=== PATIENT | female | born 1985 | race Two or more races ===

== ENCOUNTER 2024-02-16 01:54 | Emergency (ER) | payer MEDICAID, SELFPAY ==
[2024-02-16 01:55] VITALS: BMI 25.6
[2024-02-16 02:01] VITALS: BP 179/109; PULSE 82; RESP 18; TEMP 36.8; O2SAT 98
--- NOTE | 2024-02-16 02:05 | PD.EDRME ---
Rapid Medical Screening Exam RME Arrival date/time: 02/16/24 01:54 38-year-old female presents emergency department complaining of bilateral flank pain that started yesterday. Chief Complaint: Back Pain/Injury Time Seen by Provider: 02/16/24 02:02 Vital signs: Vital Signs Temperature 98.2 F 02/16/24 02:01 Pulse Rate 82 02/16/24 02:01 Respiratory Rate 18 02/16/24 02:01 Blood Pressure 179/109 H 02/16/24 02:01 Pulse Oximetry (%) 98 02/16/24 02:01 Oxygen Delivery Method Room Air 02/16/24 02:01 Vital signs reviewed by provider: Yes
--- NOTE | 2024-02-16 02:24 | PC.NURSE ---
SEEN LEAVING ER, PT GOT INTO A CAR.
--- NOTE | 2024-02-16 02:24 | PC.NURSE ---
NO ANSWER AT ER LOBBY OR OUTSIDE ER FOR BLOOD DRAW.
== END 2024-02-16 02:25 | disposition left against medical advice (07) ==
LOC: SERX 02:45
PROVIDERS: Emergency Provider Emergency Medicine
DX: R10.9 Unspecified abdominal pain (principal); Z53.29 Procedure and treatment not carried out because of patient's decision for other reasons
CPT/HCPCS: 80053; 80307; 81001; 83690; 84703; 85025; 99281

== ENCOUNTER 2024-08-01 16:09 | Emergency (ER) | payer MEDICAID, SELFPAY ==
[2024-08-01 16:11] VITALS: BP 158/92; PULSE 91; RESP 18; TEMP 36.6; O2SAT 95
--- NOTE | 2024-08-01 16:15 | PD.EDNV ---
Nausea/Vomit./Diarrhea-RME/HPI General Chief complaint: Nausea/Vomiting/Diarrhea Stated complaint: NAUSEA Time Seen by Provider: 08/01/24 16:18 Arrival date/time: 08/01/24 16:09 Limitations: no limitations RME / HPI RME / HPI Narrative: DR. COLLINS MAIN ED EVALUATION: 38 year old female presents to the Emergency Department [facility] with complaints of nausea and vomiting. No fevers or chills. Per EMS, patient was working in the [employer], [employer], and she has not been drinking water for 2 days. No other symptoms reported. Related Data Previous Rx's ?Medication ?Instructions ?Recorded ibuprofen 600 mg tablet 600 mg PO Q6H #30 tabs 11/17/23 Allergies Allergy/AdvReac Type Severity Reaction Status Date / Time No Known Allergies Allergy Verified 08/01/24 16:24 Review of Systems Review of Systems Systems Reviewed: All systems reviewed, normal except as documented Narrative Review of Systems: GEN: No fever, no chills, no weight loss EYES: No discharge, no visual changes, no pain HEENT: No ear pain, no congestion, no sore throat PULM: No shortness of breath, no cough, no congestion CV: No chest pain, no dyspnea on exertion, no palpitations GI: + nausea, + vomiting, no diarrhea, no pain, no constipation : No frequency, no urgency and no dysuria MUSC/SKEL: No joint pain, no back pain SKIN: No rash PSYCH: No hallucinations, no depression HEME/LYMPH: No easy bleeding or bruising tendencies NEURO: No weakness, no headache Past Medical History Social History SMOKING STATUS: Never smoker SUBSTANCE USE: does not use (denies) ALCOHOL: Never ED Exam General Limitations: Present no limitations General appearance: Present alert and in no apparent distress Head Head exam: Present atraumatic, normocephalic and normal inspection Eye Eye exam: Present normal appearance, PERRL and EOMI ENT ENT exam: Present normal exam, normal oropharynx and mucous membranes moist Neck Neck exam: Present normal inspection, full ROM and trachea midline Chest Chest inspection: Present normal inspection and symmetric chest wall rise Respiratory Respiratory exam: Present normal lung sounds bilaterally Cardiovascular Cardiovascular exam: Present regular rate, normal rhythm and normal heart sounds Abdominal Exam Abdominal exam: Present soft and normal bowel sounds Extremities Exam Extremities exam: Present normal inspection and full ROM Back Exam Back exam: Present normal inspection and full ROM Neurological Exam Neurological exam: Present alert, oriented X3 and CN II-XII intact Psychiatric Psychiatric exam: Present normal affect and normal mood Skin Skin exam: Present warm, dry, intact and normal color Course Quality Measures none Orders Category Date Time Status CT Screening NOW Care 08/01/24 16:22 Active Insert IV STAT Care 08/01/24 16:[address] abdomen pelvis w con Stat Exams 08/01/24 16:22 Ordered Amylase Stat Lab 08/01/24 16:32 Completed CBC Stat Lab 08/01/24 16:32 Completed Comprehensive Metabolic Panel Stat Lab 08/01/24 16:32 Completed HCG Qualitative,Urine Stat Lab 08/01/24 16:20 Ordered HCG Titer if Positive Stat Lab 08/01/24 16:32 Completed Lipase Stat Lab 08/01/24 16:32 Completed Magnesium Stat Lab 08/01/24 16:32 Completed Urinalysis Stat Lab 08/01/24 16:20 Ordered DiphenhydrAMINE INJ [Benadryl Inj] Med 08/01/24 16:23 Discontinued 25 mg IV X1 ONE Famotidine Inj [Pepcid Inj] Med 08/01/24 16:19 Discontinued 20 mg IVP X1 ONE Metoclopramide Inj [Reglan Inj] Med 08/01/24 16:19 Discontinued 10 mg IVP X1 ONE Morphine Inj Med 08/01/24 16:19 Active 5 mg IVP Q30M PRN Ondansetron Inj [Zofran Inj] Med 08/01/24 16:19 Active 4 mg IV Q1H PRN Sodium Chloride 0.9% 1000 ml [Ns] 1,000 ml Med 08/01/24 16:19 Active IV 100 mls/hr Sodium Chloride 0.9% 1000 ml [Ns] 1,000 ml Med 08/01/24 16:19 Discontinued IV 999 mls/hr Vital Signs Vital signs: Vital Signs Temperature 97.9 F 08/01/24 16:11 Pulse Rate 91 08/01/24 16:11 Respiratory Rate 18 08/01/24 16:11 Blood Pressure 158/92 H 08/01/24 16:11 Pulse Oximetry (%) 95 08/01/24 16:11 Oxygen Delivery Method Room Air 08/01/24 16:11 Nausea/Vomiting/Diarrhea MDM Narrative MDM Narrative:: I, Yaz Pelayo, jonnie scribing for and in the presence of Dr. Collins. Patient here for nausea and vomiting. Differential diagnosis: Likely gastroenteritis, hyperemesis syndrome, drug-induced nausea, dehydration, or heat stroke. Plan to order abdomen/pelvis CT, labs, and reevaluate. Pending abdomen/pelvis CT. Patient's case signed out to Dr. Estrada. Patient data External records reviewed:: EMS form Clinical information provided by:: patient and EMS Social determinants that could affect healthcare access:: none Patient has the following chronic illnesses:: Denies any PMHx, surgeries, daily medications, or known allergies. How is presenting disease/condition affected by chronic disease/condition?: no chronic disease Evaluation data The following diagnostics were reviewed and interpreted by me:: lab results and radiology exam(s) Lab and/or radiology exams considered but not ordered:: none Interpretation Summary: Pending. Medications / Prescriptions Medications / Prescriptions considered but not ordered:: none Medication administrations:: Medication Administration History Sodium Chloride (Ns) 1,000 mls @ 100 mls/hr IV .Q10H ONE Stop: 08/02/24 02:18 Morphine Sulfate (Morphine Sulf Inj 10 Mg/Ml Vial) 5 mg IVP Q30M PRN PRN Reason: ABDOMINAL CRAMPING Stop: 08/01/24 18:20 Ondansetron HCl (Ondansetron Inj 2 Mg/Ml Inj 2 Ml) 4 mg IV Q1H PRN PRN Reason: PERSISTENT NAUSEA OR VOMITING Discontinued Medications Diphenhydramine HCl (Diphenhydramine Inj 50 Mg/Ml Vial) 25 mg IV X1 ONE Stop: 08/01/24 16:24 Famotidine (Famotidine Inj 10 Mg/Ml Vial 2 Ml) 20 mg IVP X1 ONE Stop: 08/01/24 16:20 Sodium Chloride (Ns) 1,000 mls @ 999 mls/hr IV .Q1H1M ONE Stop: 08/01/24 17:19 Metoclopramide HCl (Metoclopramide Inj 5 Mg/Ml Vial 2 Ml) 10 mg IVP X1 ONE Stop: 08/01/24 16:20 see above if any Consultations Consultation(s) initiated? (list below): No Diagnosis Nausea Differential Diagnosis: gastroenteritis, drug-induced nausea and vomiting, dehydration and other (heat stroke, hyperemesis syndrome) Most likely diagnosis given after review of the tests above:: No official diagnoses at this time, still pending diagnostic tests. Patient signout to the shiftman provider. Admission Indicated Admission indicated?: not indicated Explain why admission is indicated or not indicated:: No final disposition plan at this time, still pending diagnostic tests. Patient signout to the shiftman provider. Admission Request Was there a request for admission?: No Disposition Plan Disposition Plan: other (specify) (Pending abdomen/pelvis CT. Patient's case signed out to Dr. Estrada. ) Discharge Plan Prescriptions/Referrals Prescriptions/Med Rec: No Action ibuprofen 600 mg tablet 600 mg PO Q6H Qty: 30 0RF Referrals: No Primary/Family,Physician [Primary Care Provider] - In 1 week Patient/Caregiver Discharge Instructions Print Language: Palauan
[2024-08-01 16:21] VITALS: PULSE 92; O2SAT 97
[2024-08-01 16:47] LABS: Basophils # (Auto) 0.1 Thou/mm3 (0.0-0.2); Basophils % (Auto) 1 % (0-2.5); Eosinophils # (Auto) 0.2 Thou/mm3 (0.0-0.5); Eosinophils % (Auto) 2 % (0-10); Hematocrit 39.1 % (36.0-46.0); Hemoglobin 13.3 g/dL (12.0-16.0); Immature Granulocytes % (Auto) 1 % (0-0); Immature Granulocytes Auto 0.06 Thou/mm3 (0.00-0.00); Lymphocytes # (Auto) 1.5 Thou/mm3 (1.0-4.8); Lymphocytes % (Auto) 13 % (10-50); Mean Corpuscular Hemoglobin 27.8 pg (25.0-35.0); Mean Corpuscular Volume 82 fL (80-100); Monocytes # (Auto) 0.4 Thou/mm3 (0.0-0.8); Monocytes % (Auto) 4 % (0-12); Neutrophils # (Auto) 9.2 Thou/mm3 (1.8-7.7); Neutrophils % (Auto) 80 % (37-80); Nucleated Red Blood Cell % 0 /100 WBC (0); Platelet Count 406 Thou/mm3 (140-440); RDW Standard Deviation 38.8 fL (36.4-46.3); Red Blood Count 4.79 Miln/mm3 (4.00-5.20); White Blood Count 11.5 Thou/mm3 (3.6-11.0)
[2024-08-01 16:58] LABS: HCG Titer if Positive Negative
[2024-08-01 17:06] LABS: Alanine Aminotransferase 18 U/L (10-49); Albumin, Serum 4.4 gm/dL (3.5-5.0); Albumin/Globulin Ratio 1.6 (1.2-2.2); Alkaline Phosphatase 82 U/L (46-116); Amylase 98 U/L (30-118); Anion Gap 10 (7-16); Aspartate Amino Transferase 19 U/L (0-34); BUN/Creatinine Ratio 16 Ratio (12-20); Bilirubin,Total 0.5 mg/dL (0.3-1.2); Blood Urea Nitrogen 14 mg/dL (9-23); Calcium 8.9 mg/dL (8.3-10.6); Calcium (Corrected) 8.9 mg/dL (8.5-10.1); Carbon Dioxide 23.9 mMol/L (20.0-31.0); Chloride 106 mMol/L (98-107); Creatinine (Component) 0.9 mg/dL (0.6-1.3); Globulin 2.8 gm/dL (2.3-3.5); Glucose 131 mg/dL (74-106); Lipase 35 U/L (12-53); Osmolality,Calculated 281 (275-295); Potassium 4.1 mMol/L (3.4-5.1); Sodium 140 mMol/L (136-145); Total Protein 7.2 gm/dL (5.7-8.2); eGFR > 60 See Note
--- NOTE | 2024-08-01 18:40 | PD.EDADDENDU ---
Emergency Room Addendum Addendum Narrative: 1800: Care assumed from Dr. Collins (emergency physician). Past medical, surgical, social and family history reviewed. Vitals and home medications reviewed. Results and treatment plan discussed. I will assume the care of the patient at this time and will follow the patient, pending Abdomen/Pelvis CT. 1939: All labs are unremarkable, per my interpretation. 1949: EKG shows normal sinus rhythm at 74, normal axis, no ectopy, no signs of acute ischemia, per my interpretation. 2056: Patient discharge home. RADIOLOGY Chest X-Ray: Patient: VERONICA BAUMAN. Record#: [id number] Birthdate: 1985 Age/Sex: 38 / F Location: [facility] Attending Dr: Ordering Physician: Davide Estrada MD Date of Service: 08/01/24 Procedure(s): XR chest 1V portable Accession Number(s): [id number] cc: Je Raines MD; NO PRIMARY/FAMILY,PHYSICIAN; Davide Estrada MD~ Examination: AP chest single view TECHNIQUE: AP portable upright chest single view Exam date and time: August 01, 2024, 2044 hours INDICATIONS: Nausea vomiting today. FINDINGS: Normal heart size. No aspiration pneumonia. No pulmonary edema. The osseous structures are intact. IMPRESSION: No active disease Dictated By: Je Raines MD Signed By: <Electronically signed by Je Raines MD in [place]>08/01/242134 ED Exam Narrative Physical exam: GENERAL APPEARANCE: alert and oriented x 4, well-developed, well-nourished, no acute distress VITALS: All vitals were reviewed and the pulse ox is 98% on room air, which is normal according to my interpretation. LUNGS: CTABL; no wheezes, no rales, no rhonchi HEART: Regular rate, regular rhythm; normal S1, S2; no murmurs ABDOMEN: non distended; normal BS; soft, no tenderness, no guarding, no rebound; no masses, no organomegaly, no hernia BACK: no CVA tenderness General Limitations: Present no limitations General appearance: Present alert and in no apparent distress
[2024-08-01 19:31] VITALS: BP 130/83; PULSE 85; RESP 16; TEMP 36.6; O2SAT 98
--- NOTE | 2024-08-01 19:31 | XR_ITS ---
Examination: AP chest single view TECHNIQUE: AP portable upright chest single view Exam date and time: August 01, 2024, 2044 hours INDICATIONS: Nausea vomiting today. FINDINGS: Normal heart size. No aspiration pneumonia. No pulmonary edema. The osseous structures are intact. IMPRESSION: No active disease
--- NOTE | 2024-08-01 19:31 | EKG_ITS ---
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
[2024-08-01 19:33] LABS: Collection Type, Urine Clean Catch; RBC,Urine 0 /hpf (0-3); WBC,Urine 0 /hpf (0-5)
[2024-08-01 19:44] LABS: Amorphous Crystals,Urine Present (Absent); Bilirubin,Urine Negative (Negative); Blood,Urine Negative (Negative); Color,Urine Yellow (Lt Yel-Yel); Glucose, Urine Negative (Negative); Ketones,Urine Negative (Negative); Leukocyte Esterase,Urine Negative (Negative); Nitrite,Urine Negative (Negative); Protein,Urine Trace (Neg - Trace); Specific Gravity,Urine 1.024 (1.001-1.035); Squamous Epithelial Cell,Urine < 1 /hpf (0-5); Urobilinogen,Urine Negative mg/dL (0.0-1.0)
[2024-08-01 19:45] LABS: HCG Qualitative,Urine Negative
[2024-08-01 19:49] LABS: Clarity,Urine Turbid (Clear/Hazy)
[2024-08-01] MEDS: FAMOTIDINE INJ 10 MG/ML VIAL 2 ML 20 MG IVP (20:01)
[2024-08-01] MEDS: SODIUM CHLORIDE 0.9% 1000 ML 1,000 ML 999 ML IV (20:01)
[2024-08-01] MEDS: ONDANSETRON INJ 2 MG/ML INJ 2 ML 4 MG IV (20:02)
[2024-08-01 21:01] VITALS: BP 128/83; PULSE 83; RESP 16; TEMP 37; O2SAT 99
== END 2024-08-01 21:04 | disposition home or self-care (01) ==
PROVIDERS: Emergency Medicine; Emergency Provider Emergency Medicine
DX: R11.2 Nausea with vomiting, unspecified (principal)
CPT/HCPCS: 36415; 71045; 80053; 81001; 81025; 82150; 83690; 83735; 84484; 84703; 85025; 93005; 96361; 96374; 96375; 99284; J2405; J3490; J7030